=== PATIENT | male | born 1995 | race Caucasian/White ===

== ENCOUNTER 2018-05-16 19:24 | Emergency (ER) | payer SELFPAY ==
--- NOTE | 2018-05-16 21:25 | ERPHSYRPT ---
- History of Present Illness Source: patient Exam Limitations: no limitations Patient Subjective Stated Complaint: pt is alert and oriented. 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 pt states he feels as if his eye is throbbing. no obvious deformity or discoloration noted. pt visual accuity showed 20/20 in left and right eyes and 20/20 with both eyes. pt states he just feels like he can't see straight. Triage Nursing Assessment: see above Physician History: Pt is a 23 y/o male that was doing MMA today, and got hit in his L eye. Pt presented to the ER complaining of double vision, a feeling of "fullness" in his L orbit, and limitation in eye movement. Pt states, hurt his R ankle again , but is able to move his ankle, and rotate it well. Timing/Duration: abrupt onset Severity: moderate ENT Location: facial (L eye) Modifying Factors: Improves With: nothing Associated Symptoms: facial pain/swelling Allergies/Adverse Reactions: Penicillins Allergy (Verified 05/16/18 19:37) Sulfa (Sulfonamide Antibiotics) Allergy (Verified 05/16/18 19:37) Home Medications: Trazodone HCl 50 mg [Desyrel 50 mg] 50 mg PO HS PRN 05/16/18 [History] Immunizations Up to Date: Yes - Review of Systems Constitutional: No Fever, No Chills Eyes: Eye Pain, Eye Redness, Vision Changes, Double Vision Ears, Nose, & Throat: No Symptoms Respiratory: No Cough, No Dyspnea Cardiac: No Chest Pain, No Edema, No Syncope Abdominal/Gastrointestinal: No Abdominal Pain, No Nausea, No Vomiting, No Diarrhea Musculoskeletal: No Back Pain, No Neck Pain Neurological: No Dizziness, No Focal Weakness, No Sensory Changes Psychological: No Symptoms Endocrine: No Symptoms - Past Medical History Pertinent Past Medical History: Yes Neurological History: No Pertinent History ENT History: No Pertinent History Cardiac History: Other Respiratory History: No Pertinent History Endocrine Medical History: No Pertinent History Musculoskeletal History: Fractures GI Medical History: No Pertinent History History: No Pertinent History Psycho-Social History: No Pertinent History Male Reproductive Disorders: No Pertinent History Other Medical History: heart murmur in adolescents. - Past Surgical History Past Surgical History: No - Social History Smoking Status: Current every day smoker How long have you smoked: 10 years Drug Use: marijuana - Nursing Vital Signs Nursing Vital Signs: Initial Vital Signs Temperature 98.5 F 05/16/18 19:30 Pulse Rate 107 H 05/16/18 19:30 Respiratory Rate 16 05/16/18 19:30 Blood Pressure 149/81 05/16/18 19:30 O2 Sat by Pulse Oximetry 96 05/16/18 19:30 Pain Scale Pain Intensity 6 - Physical Exam Eye Exam: left eye: EOMI, vision changes, other (tenderness to palpation in the base of the L eye) Cardiovascular/Respiratory Exam: normal breath sounds, regular rate/rhythm Abdominal Exam: non-tender, soft Neurologic Exam: alert, oriented x 3, sensation nml, No motor deficits SpO2: 97 - CT Exams Maxillofacial Bones CT Interpretation: Other (Orbital fx, and herniation of orbital fat through defect) Ordered Tests: Active Orders 24 hr Category Date Time Status FACIAL BONES WO CONTRAST [CT] Stat Exams 05/16/18 19:49 Taken - Progress Progress: unchanged Progress Note: 05/16/18 21:[address] of facial bones was done, and pt was diagnosed with fx. Pt will be transfered to [facility] ER. Dr Ayala trauma surgeon is accepting. Pt will be sent to the ER. 2mg of Morphine IV will be given, prior to d/c. Will see patient in: hospital (full admit) Counseled pt/family regarding: diagnosis - Departure Time of Disposition: 21:26 Departure Disposition: Transfer ([facility] ER. Dr Ayala, trauma surgeon is accepted.) Clinical Impression: Orbital floor fracture Condition: Stable Critical Care Time: No Referrals: DOCTOR,NO FAMILY [Primary Care Provider] - Additional Instructions: Pt will be transfered to [facility] ER.
[2018-05-16] MEDS ORDERED: MORPHINE SULFATE 2 MG INJ IV ONE ×2 (21:40→22:27)
[2018-05-16] MEDS ORDERED: MORPHINE SULFATE 2 MG INJ ONE ×2 (21:41→22:28)
[2018-05-16 22:35] VITALS: BP 122/79; PULSE 92; O2SAT 99
--- NOTE | 2018-05-17 09:06 | XRAY ---
Indication: Left periorbital trauma following kickboxing injury. Multiple contiguous axial images obtained through the facial bones. Sagittal and coronal reformatted images obtained. Comparison: None There is fracture involving the floor of the left orbit with fracture fragment extending into the maxillary sinus. Left orbital fat and inferior rectus muscle slightly protrudes through the fracture defect without entrapment. Tiny remote appearing fracture involving the bridge of the nasal bone. Mild maxillary sinus mucosal thickening, left greater than right without fluid leveling. Lesser mucosal thickening seen of both ethmoid sinuses. No suspicious bony lesions or radiopaque foreign body. Visualized noncontrast soft tissues including base of the brain unremarkable. Impression: 1. Displaced fracture involving the floor of the left orbit. Slight orbital fat/inferior rectus muscle protruding but no obvious entrapment. 2. Remote appearing nasal bone fracture. 3. Incidental paranasal sinus disease. Comment: Preliminary interpretation was made by [facility]. No discrepancy. CTDI 59.47
== END 2018-05-16 22:40 | disposition short-term general hospital (02) ==
LOC: ED 19:24
DX: S02.32XA Fracture of orbital floor, left side, initial encounter for closed fracture (principal); W22.8XXA Striking against or struck by other objects, initial encounter; Y93.75 Activity, martial arts; Y92.89 Other specified places as the place of occurrence of the external cause; R51 Headache
CPT/HCPCS: 36000; 70486; 96374; 96376; 99284; J2270